=== PATIENT | male | born 1980 | race American Indian/Alaskan Native ===

== ENCOUNTER 2019-09-03 20:07 | Emergency (ER) | payer SELFPAY ==
--- NOTE | 2019-09-03 20:22 | Emergency Department Report ---
Blank Doc - Documentation Documentation: 39-year-old male that presents with right index parenchyma. This initial assessment/diagnostic orders/clinical plan/treatment(s) is/are subject to change based on patient's health status, clinical progression and re- assessment by fellow clinical providers in the ED. Further treatment and workup at subsequent clinical providers discretion. Patient/guardians urged not to elope from the ED as their condition may be serious if not clinically assessed and managed. Initial orders include: 1- Patient sent to [facility] for further evaluation and treatment
[2019-09-03 20:24] VITALS: BP 128/68
[2019-09-03] MEDS ORDERED: HYDROcodone/ACETAMINOPHEN 5-325 MG TAB PO STA (23:47)
[2019-09-03] MEDS ORDERED: CLINDAMYCIN 300 MG CAP PO ONE (23:47)
[2019-09-03] MEDS ORDERED: HYDROGEN PEROXIDE 118 ML SOLUTION ONE ×2 (23:55→23:56)
[2019-09-03] MEDS ORDERED: HYDROGEN PEROXIDE 118 ML SOLUTION TP ONE (23:56)
== END 2019-09-04 00:52 | disposition home or self-care (01) ==
LOC: ED 20:07
DX: M79.644 Pain in right finger(s) (principal); Z53.21 Procedure and treatment not carried out due to patient leaving prior to being seen by health care provider